=== PATIENT | female | born 1945 | race African-American/Black ===

== ENCOUNTER 2016-07-10 23:28 | Emergency (ER) | payer OTHER ==
[2016-07-10 23:43] VITALS: BMI 26.2
--- NOTE | 2016-07-10 23:44 | PDOC ---
History of Present Illness - History of Present Illness Initial Comments: 07/10/16 23:56 Patient is a 71 year old female with significant medical hx of HTN, COPD, angina (on 81mg of aspirin), and borderline diabetes who is presenting to the ED intoxicated s/p fall. The patient reports she's had about 6-8 drinks of vodka tonight. She fell backwards down a set of 12 stairs, hitting her back and her head, with reported loss of consciousness. Patient is accompanied by grandson who reports she lost consciousness for about three minutes. The patient complains of a laceration to the back of her head, posterior rib cage pain, and lower back pain. Denies any extremity pain, abdominal pain, nausea, vomiting, chest pain, shortness of breath, visual changes, or weakness. Surgical Hx: tubal ligation, SBO <Cathie Welsh - Last Filed: 07/11/16 02:05> <Chandni Thomas - Last Filed: 07/11/16 03:36> - General Chief Complaint: Injury Stated Complaint: FALL Time Seen by Provider: 07/10/16 23:44 Past History <Cathie Welsh - Last Filed: 07/11/16 02:05> - Past Medical History Cardiac Disorders: Yes (Angina) COPD: Yes Diabetes: Yes (Borderline) HTN: Yes - Surgical History Abdominal Surgery: Yes (Tubal ligation) GI Surgery: Yes (from SBO) - Psycho/Social/Smoking Cessation Hx Suicidal Ideation: No Smoking History: Former smoker Have you smoked in the past 12 months: No Information on smoking cessation initiated: No Hx Alcohol Use: Yes Drug/Substance Use Hx: No Substance Use Type: Alcohol <Chandni Thomas - Last Filed: 07/11/16 03:36> - Past Medical History Allergies/Adverse Reactions: Allergies Allergy/AdvReac Type Severity Reaction Status Date / Time No Known Drug Allergies Allergy Verified 07/10/16 23:51 IV contrast Allergy Severe Uncoded 07/10/16 23:51 Home Medications: Ambulatory Orders Aspirin [ASA -] 81 mg PO DAILY 07/10/16 Budesonide/Formeterol Fumarate [SYMBICORT 80/4.5mcg -] 2 inh PO BID 07/10/16 Cholecalciferol (Vitamin D3) [Vitamin D3] 2,000 unit PO DAILY 07/10/16 Isosorbide Mononitrate [Isosorbide Mononitrate ER] 30 mg PO DAILY 07/10/16 Metoprolol Succinate [Toprol Xl -] 25 mg PO DAILY 07/10/16 Olmesartan/Hydrochlorothiazide [Benicar Hct 40-25 mg Tablet] 1 each PO DAILY 05/23 Simvastatin [Zocor -] 40 mg PO DAILY 07/10/16 Tiotropium [place] [Spiriva] 1 inh IH DAILY PRN 07/10/16 Review of Systems - Review of Systems Comments:: 07/11/16 00:01 CONSTITUTIONAL: Absent: fever, chills, diaphoresis, generalized weakness, malaise, loss of appetite HEENT: Absent: rhinorrhea, nasal congestion, throat pain, throat swelling, difficulty swallowing, mouth swelling, ear pain, eye pain, visual changes CARDIOVASCULAR: Absent: chest pain, syncope, palpitations, irregular heart rate, lightheadedness , peripheral edema RESPIRATORY: Absent: cough, shortness of breath, dyspnea with exertion, orthopnea, wheezing, stridor, hemoptysis GASTROINTESTINAL: Absent: abdominal pain, abdominal distension, nausea, vomiting, diarrhea, constipation, melena, hematochezia GENITOURINARY: Absent: dysuria, frequency, urgency, hesitancy, hematuria, flank pain, genital pain MUSCULOSKELETAL: Present: lower back pain, posterior ribcage pain Absent: myalgia, arthralgia, joint swelling SKIN: Present: laceration to the back of the head Absent: rash, itching, pallor HEMATOLOGIC/IMMUNOLOGIC: Absent: easy bleeding, easy bruising, lymphadenopathy, frequent infections ENDOCRINE: Absent: unexplained weight gain, unexplained weight loss, heat intolerance, cold intolerance NEUROLOGIC: Present: headache Absent: focal weakness or paresthesia, dizziness, unsteady gait, seizure, mental status changes, bladder or bowel incontinence. PSYCHIATRIC: Absent: anxiety, depression, suicidal or homicidal ideation, hallucinations <Cathie Welsh - Last Filed: 07/11/16 02:05> *Physical Exam - Vital Signs Last Vital Signs Temp Pulse Resp BP Pulse Ox 97.5 F L 96 H 20 176/117 98 07/10/16 23:37 07/10/16 23:37 07/10/16 23:37 07/10/16 23:37 07/10/16 23:37 - Physical Exam Comments: 07/11/16 00:06 GENERAL: Well developed, well nourished. Intoxicated. Awake and alert. No acute distress. HEENT: Normocephalic, scalp laceration. PERRLA, EOMI. No conjunctival pallor. Sclera are non-icteric. Moist mucous membranes. Oropharynx is clear. NECK: Supple. Full ROM. No JVD. Carotid pulses 2+ and symmetric, without bruits. No thyromegaly. No lymphadenopathy. CARDIOVASCULAR: Regular rate and rhythm. No murmurs, rubs, or gallops. Distal pulses are 2+ and symmetric. PULMONARY: No evidence of respiratory distress. Lungs clear to auscultation bilaterally. No wheezing, rales or rhonchi. ABDOMINAL: Soft. Non-tender. Non-distended. No rebound or guarding. No organomegaly. Normoactive bowel sounds. MUSCULOSKELETAL: Posterior ribcage tenderness. Lumbar tenderness. No pinpoint c-spine tenderness. Normal range of motion at all joints. No bony deformities. No CVA tenderness. EXTREMITIES: No obvious deformity. No cyanosis. No clubbing. No edema. No calf tenderness. SKIN: Warm and dry. Normal capillary refill. No rashes. No jaundice. NEUROLOGICAL: Alert, awake, intoxicated. Cranial nerves 2-12 intact. Normal speech. PSYCHIATRIC: Cooperative. Good eye contact. Appropriate mood and affect. <Cathie Welsh - Last Filed: 07/11/16 02:05> - Vital Signs Last Vital Signs Temp Pulse Resp BP Pulse Ox 97.5 F L 96 H 20 176/117 98 07/10/16 23:37 07/10/16 23:37 07/10/16 23:37 07/10/16 23:37 07/10/16 23:37 <Chandni Thomas - Last Filed: 07/11/16 03:36> Procedures - Laceration/Wound Repair Occipital Wound Length: 2.6 to 5.0 cm Wound Explored: no foreign body present Wound's Depth, Shape: irregular, stellate Irrigated w/ Saline: Yes Betadine Prep: No Anesthesia: 1% Lidocaine Amount of Anesthetic (ccs): 7 Wound Debrided: minimal Wound Repaired With: Ahmet (6) Sterile Dressing Applied: No Splint Applied: No Sling Applied: No <Chandni Thomas - Last Filed: 07/11/16 03:36> ED Treatment Course - LABORATORY CBC & Chemistry Diagram: 07/10/16 23:53 07/10/16 23:53 - RADIOLOGY Radiograph Interpretation: 07/11/16 01:17 Complex Commercial Litigation Paralegal: ([email or web address]) Report Date: 07/11/2016 00:05:00 Report Status: Addendum Begin of Report Content Referring Physician: Chandni Livingston discussed w/ 12:58AM ET THIS DOCUMENT HAS BEEN ELECTRONICALLY SIGNED Jose Segundo MD 07/11/2016 00:59 EST M.D. Please call [facility] [email or web address] ([phone]) with questions. PREVIOUS REPORT: Referring Physician: Chandni Thomas Patient Name: Dorie Livingston THIS IS A PRELIMINARY REPORT FROM [facility] EXAM: CT brain without contrast IMAGES: [id number] EXAM DATE AND TIME: 2016-07-11 00:05:15.0 REASON FOR EXAM: Trauma COMPARISON: No FINDINGS: Positive for an acute focal right parietal skull fracture. There is slight 3-4mm depression of the inner table. There is acorresponding indentation of the outer table.. Overlying scalp hematoma. No intracranial hemorrhage. No shift or herniation. Involutional changes. 7 mm lacunar infarct of the right anterior subinsular region. Indeterminate age. Too small to characterize. Correlate with symptoms. THIS DOCUMENT HAS BEEN ELECTRONICALLY SIGNED Jose Segundo MD 07/11/2016 00:51 EST M.D. Please call [facility] [email or web address] ([phone]) with questions. End of Report Content Complex Commercial Litigation Paralegal: ([email or web address]) Report Date: 07/11/2016 00:07:00 Report Status: Preliminary Begin of Report Content Referring Physician: Chandni Thomas Patient Name: Dorie Livingston THIS IS A PRELIMINARY REPORT FROM [facility] EXAM: CT cervical spine without contrast IMAGES: [id number] EXAM DATE AND TIME: 2016-07-11 00:07:42.0 REASON FOR EXAM: Patient fell COMPARISON: No FINDINGS: Degenerative changes. This includes C4-5 posterior osteophyte and disc protrusions at C5-6 and possibly C6-7. Negative for cervical fracture or malalignment. Straightening of the cervical lordosis which could be due to degenerative disease and/or muscle spasm. THIS DOCUMENT HAS BEEN ELECTRONICALLY SIGNED Jose Segundo MD 07/11/2016 00:43 EST M.D. Please call [facility] [email or web address] ([phone]) with questions. End of Report Content Complex Commercial Litigation Paralegal: ([email or web address]) Report Date: 07/11/2016 00:11:00 Report Status: Addendum Begin of Report Content Referring Physician: Chandni Morleyks DISCUSSED W/ 12:58pm et THIS DOCUMENT HAS BEEN ELECTRONICALLY SIGNED Jose Segundo MD 07/11/2016 00:58 EST M.D. Please call [facility] [email or web address] ([phone]) with questions. PREVIOUS REPORT: Referring Physician: Chandni Thomas Patient Name: Dorie Livingston THIS IS A PRELIMINARY REPORT FROM [facility] EXAM: CT lumbar spine without contrast IMAGES: [id number] EXAM DATE AND TIME: 2016-07-11 00:11:31.0 REASON FOR EXAM: Patient fell COMPARISON: No FINDINGS: T12 is incompletely included on the scan (anterosuperior corner is off the imaging field). However, there is an acute horizontal fracture through the superior third of the vertebral body. No loss of height at this time. Minimal retropulsion without canal narrowing.. Posterior elements are intact. No lumbar spinal fracture or acute malalignment. Degenerative anterolisthesis of L4 on L5 and of L5 on S1. THIS DOCUMENT HAS BEEN ELECTRONICALLY SIGNED Jose Segundo MD 07/11/2016 00:47 SCOTT Cardenas. Please call [facility] [email or web address] ([phone]) with questions. End of Report Content 07/11/16 02:05 Complex Commercial Litigation Paralegal: ([email or web address]) Report Date: 07/11/2016 01:28:00 Report Status: Preliminary Begin of Report Content Referring Physician: Chandni Thomas Patient Name: Dorie Livingston THIS IS A PRELIMINARYREPORT FROM [facility] EXAM: CT thoracic spine without contrast IMAGES: [id number] EXAM DATE AND TIME: 2016-07-11 01:28:11.0 REASON FOR EXAM: Trauma fell COMPARISON: CT lumbar spine performed earlier FINDINGS: As noted on the CT lumbar spine, there is a horizontal fracture through the superior third of the T12 vertebral body. Very minimal retropulsion. No significant narrowing of the spinal canal at this time. There is also a small avulsion fracture of the non-articulating portion of the left T12 superior facet. Linear lucency right pedicle of T12 is felt to represent a nutrient canal. No other thoracic spinal fracture or malalignment. THIS DOCUMENT HAS BEEN ELECTRONICALLY SIGNED Jose Segundo MD 07/11/2016 02:02 SCOTT Cardenas. Please call [facility] [email or web address] ([phone]) with questions. End of Report Content <Cathie Welsh - Last Filed: 07/11/16 02:05> - LABORATORY CBC & Chemistry Diagram: 07/10/16 23:53 07/10/16 23:53 <Chandni Thomas - Last Filed: 07/11/16 03:36> Medical Decision Making - Medical Decision Making 07/11/16 03:13 Blood pressure is presently 155/90, initially it was 176/117 when she first arrived at the ER 71-year-old female was brought in by ambulance, not by collared or boarded after she fell backwards down about 12 steps. Patient admits to drinking vodka Medical history significant for COPD she does take a baby aspirin daily Social history smoking since a teenager about 10-15 cigarettes daily, uses alcohol Patient is alert although inebriated. She can readily follow the conversation and answer questions. Patient is moving all extremities without complaints. Patient presented with a stellate occipital laceration that was closed with ahmet Her major complaint was scalp laceration and back pain CAT scan of the head showed a 3-4 mm depressed skull fracture, right parietal area CAT scan of the cervical spine was negative for acute fractures or malalignment CAT scan of the thoracic spine showed a horizontal fracture through T 12 that was acute CAT scan of the lumbar spine was negative for any acute fractures or malalignment etoh level was 294 - her 32 yo grandson accompanied pt to ER, pt agreed to transfer and family member agreed -her last tetanus was more than 10 years ago and she was given a booster Chest x-ray did not show pneumothorax, no rib fractures were appreciated pt;s EKG was nsr @ [address] William Flores neurosurgeon, and he requested the patient be transferred to a trauma center [facility] and not [facility] and therefore I called [facility] -case was accepted by trauma attending, 07/11/16 03:25 07/11/16 03:26 <Chandni Thomas - Last Filed: 07/11/16 03:36> *DC/Admit/Observation/Transfer - Attestations Scribe Attestion: 07/11/16 00:05 Documentation prepared by Cathie Welsh, acting as medical review specialist for Chandni Thomas MD. <Cathie Welsh - Last Filed: 07/11/16 02:05> - Transfer to Acute Care Facility Receiving Facility: [facility]. Accepting Physician:: DR BARRIENTOS Transfer comment: 07/11/16 03:36 patient to be Level 2 trauma activation <WilliamChandni - Last Filed: 07/11/16 03:36> Diagnosis at time of Disposition: Depressed fracture of skull Qualifiers: Encounter type: initial encounter Fracture type: closed Qualified Code(s): S02.91XA - Unspecified fracture of skull, initial encounter for closed fracture Fracture of thoracic spine Qualifiers: Encounter type: initial encounter Thoracic vertebra fracture level: T12 Fracture type: closed Fracture morphology: other fracture Qualified Code(s): S22.088A - Other fracture of T11-T12 vertebra, initial encounter for closed fracture Laceration of occipital scalp Qualifiers: Encounter type: initial encounter Qualified Code(s): S01.01XA - Laceration without foreign body of scalp, initial encounter Alcoholic intoxication Qualifiers: Complication of substance-induced condition: uncomplicated Qualified Code(s): F10.920 - Alcohol use, unspecified with intoxication, uncomplicated - Discharge Dispostion Disposition: TRANSFER ACUTE CARE/OTHER HOSP
[2016-07-11 00:05] LABS: BASOPHIL 0.9 % (0-2.0); EOSINOPHIL 2.6 % (0-4.5); MCH 31.3 pg (25.7-33.7); MCHC 31.8 g/dl (32.0-36.0); MEAN CELL VOLUME 98.5 fl (80-96); MEAN PLT VOLUME 8.4 fl (7.5-11.1); NEUTROPHILS 71.7 % (42.8-82.8); PLATELET COUNT 220 K/MM3 (134-434); RDW 13.9 % (11.6-15.6); WHITE BLOOD COUNT 10.4 K/mm3 (4.0-10.0)
[2016-07-11 00:21] LABS: INR 1.08 (0.82-1.09); PROTHROMBIN TIME (PATIENT) 11.9 SEC (9.98-11.88)
[2016-07-11 00:24] LABS: ACTIVATED PTT 24.1 SECONDS (26.9-34.4)
[2016-07-11 00:33] LABS: ANION GAP 12 (8-16); CALCIUM 8.3 mg/dL (8.5-10.1); CO2 26 mmol/L (21-32); CREATININE 0.9 mg/dL (0.55-1.02); GLUCOSE,RANDOM 154 mg/dL (74-106); SGOT/AST 105 U/L (15-37); SGPT/ALT 67 U/L (12-78)
[2016-07-11 00:36] LABS: ALK PHOS 70 U/L (45-117); BILIRUBIN,TOTAL 0.7 mg/dL (0.2-1.0); TOT PROT 7.8 g/dl (6.4-8.2)
[2016-07-11 00:47] LABS: TROPONIN I < 0.02 ng/ml (0.00-0.05)
[2016-07-11] MEDS ORDERED: LIDOCAINE HCL/PF 1% SDV 5ML VIAL ONE (02:22)
[2016-07-11] MEDS ORDERED: morphine CARPU-JECT 2 MG/1 ML DISP.SYRIN ONE (03:23)
[2016-07-11] MEDS ORDERED: morphine CARPU-JECT 2 MG/1 ML DISP.SYRIN IVPUSH ONE (03:24)
[2016-07-11] MEDS ORDERED: TETANUS AND DIPHTHERIA TOXOID 0.5 ML DISP.SYRIN IM ONE (03:24)
[2016-07-11 04:17] VITALS: BP 155/90; PULSE 84; TEMP 97.8
--- NOTE | 2016-07-17 15:44 | EKG ---
Test Reason : Blood Pressure : / mmHG Vent. Rate : 090 BPM Atrial Rate : 090 BPM P-R Int : 160 ms QRS Dur : 078 ms QT Int : 378 ms P-R-T Axes : 060 020 051 degrees QTc Int : 462 ms NORMAL SINUS RHYTHM NORMAL ECG NO PREVIOUS ECGS AVAILABLE Confirmed by JESUSITA ESTEVES, COREY ([id number]) on 07/17/2016 3:43:57 PM Referred By: Confirmed By:COREY MC MD
== END 2016-07-11 04:10 | disposition short-term general hospital (02) ==
LOC: JER 23:28
PROC: 3E0234Z Introduction of Serum, Toxoid and Vaccine into Muscle, Percutaneous Approach (ICD-10-PCS; principal; 2016-07-10)
PROC: 3E033NZ Introduction of Analgesics, Hypnotics, Sedatives into Peripheral Vein, Percutaneous Approach (ICD-10-PCS; 2016-07-10)
DX: S02.91XA Unspecified fracture of skull, initial encounter for closed fracture (principal); S22.088A Other fracture of T11-T12 vertebra, initial encounter for closed fracture; S01.01XA Laceration without foreign body of scalp, initial encounter; F10.120 Alcohol abuse with intoxication, uncomplicated; W10.8XXA Fall (on) (from) other stairs and steps, initial encounter; Y93.89 Activity, other specified; Y92.038 Other place in apartment as the place of occurrence of the external cause; I10 Essential (primary) hypertension; J44.9 Chronic obstructive pulmonary disease, unspecified; I20.9 Angina pectoris, unspecified; E11.9 Type 2 diabetes mellitus without complications; Z79.82 Long term (current) use of aspirin
CPT/HCPCS: 36415; 70450-TC; 71010-TC; 72125-TC; 72128-TC; 72131-TC; 80053; 80307; 82550; 82553; 84484; 85025; 85610; 85730; 90471; 90715; 93005; 93010; 96374; 99284-25